=== PATIENT | male | born 1980 | race Caucasian/White ===

== ENCOUNTER 2018-05-16 21:41 | Emergency (ER) | payer OTHER, SELFPAY ==
[2018-05-16] MEDS ORDERED: Cephalexin 500 MG CAP ONE (22:25)
[2018-05-16] MEDS ORDERED: predniSONE 20 MG TAB ONE (22:25)
== END 2018-05-16 22:39 | disposition home or self-care (01) ==
LOC: MADERS 21:41
DX: L25.9 Unspecified contact dermatitis, unspecified cause (principal); F17.210 Nicotine dependence, cigarettes, uncomplicated
CPT/HCPCS: 99282; J7506

== ENCOUNTER 2022-02-27 08:28 | Emergency (ER) | payer SELFPAY | END 2022-02-27 09:45 | disposition home or self-care (01) | LOC: MADERS 08:28 | DX: S20.211A Contusion of right front wall of thorax, initial encounter (principal); F17.210 Nicotine dependence, cigarettes, uncomplicated; W18.09XA Striking against other object with subsequent fall, initial encounter; Y93.02 Activity, running ==